=== PATIENT | female | born 1950 | race Caucasian/White ===

== ENCOUNTER 2017-10-30 11:31 | Inpatient (IN) | payer MEDICARE, OTHER ==
[2017-10-30] MEDS ORDERED: DUONEB 0.5-3 MG/3 ml Neb IH ONE (11:59)
[2017-10-30] MEDS: DUONEB 0.5-3 MG/3 ml Neb IH SCH ×2 (12:00→18:55)
[2017-10-30 12:26] LABS: BASOPHIL % 0.3 % (0.0-0.4); Granulocytes % 74.9 % (36.0-66.0); Lymphocytes % 14.5 % (24.0-44.0); Mean Cell Volume 87.3 fl (78-100); Mean Corpuscular Hemoglobin 27.9 pg (26-32); Mean Platelet Volume 9.9 fl (6-9.5); Monocytes % 9.3 % (0.0-12.0); Platelet Count 163 K/mm3 (150-450); Red Blood Count 3.87 M/mm3 (4.1-5.4); Red Cell Distribution Width 14.9 % (11.5-14.0); White Blood Count 12.5 K/mm3 (4.0-10.5)
--- NOTE | 2017-10-30 12:44 | XRAY ---
Indication: Dyspnea. COPD exacerbation. History of breast cancer. Comparison: April 25, 2015. PA/lateral chest demonstrates new diffuse bilateral patchy airspace disease, right lung greater than left. No consolidation or large effusion. Stable left base calcified granuloma. Heart is not enlarged. Bony thorax intact again with mild osteopenia and degenerative changes. Impression: New diffuse bilateral airspace disease.
[2017-10-30 12:46] LABS: ALBUMIN 3.1 g/dL (3.4-5.0); ANION GAP 14.7 MEQ/L (5-15); BILIRUBIN,TOTAL 0.7 mg/dL (0.2-1.0); Carbon Dioxide 25.2 mEq/L (21-32); Potassium 3.7 mEq/L (3.5-5.1)
[2017-10-30] MEDS: ROCEPHIN 1 Gm-D5w 50 ml Bag** 1 G/50 ML IVPB IV SCH (13:42)
[2017-10-30] MEDS: Sodium Chloride 0.9% 1000 ML 1,000 ML IV SCH (14:16)
[2017-10-30] MEDS ORDERED: Klonopin 0.5 MG PO PRN (14:26)
[2017-10-30] MEDS ORDERED: NON-FORMULARY ITEM (Ranitidine Hcl [Zantac] 150 MG) PO PRN (14:26)
[2017-10-30] MEDS ORDERED: ZOFRAN ODT 4 MG PO PRN (14:26)
[2017-10-30] MEDS ORDERED: PHENERGAN 25 MG PO PRN (14:26)
[2017-10-30] MEDS ORDERED: Lomotil PO PRN (14:30)
[2017-10-30] MEDS ORDERED: Pepcid 20 MG PO PRN (14:45)
[2017-10-30] MEDS ORDERED: Neurontin 400 MG PO SCH (15:00)
[2017-10-30] MEDS: NEURONTIN 300 MG PO SCH ×2 (15:18→21:43)
[2017-10-30] MEDS: Zithromax 500 MG/ 250 ML NaCl Premix 500 MG/250 ML IVPB IV SCH (15:24)
[2017-10-30] MEDS ORDERED: solu-MEDROL 125 MG IV ONE (15:30)
[2017-10-30] MEDS: NovoLOG Insulin SQ PRN ×2 (16:43→21:44)
[2017-10-30] MEDS ORDERED: INSULIN ASPART 15 UNIT SQ SCH (17:00)
[2017-10-30] MEDS: NovoLOG Insulin SQ SCH (17:28)
[2017-10-30] MEDS: ULTRAM 50 MG PO PRN (18:25)
[2017-10-30] MEDS ORDERED: Lasix 40 MG/4 ML IV ONE (21:17)
[2017-10-30] MEDS: Lopressor 25MG Tab PO SCH (21:41)
[2017-10-30] MEDS: Sinemet CR 50/200 MG PO SCH (21:42)
[2017-10-30] MEDS: ZOCOR 20MG PO SCH (21:42)
[2017-10-30] MEDS: Singulair 10 MG PO SCH (21:42)
[2017-10-30] MEDS: CLARITIN 10 MG PO SCH (21:42)
[2017-10-30] MEDS: KEPPRA 500 MG PO SCH (21:42)
[2017-10-30] MEDS: solu-MEDROL 125 MG IV SCH (21:43)
[2017-10-30] MEDS: Xalatan OP SCH (21:43)
[2017-10-30] MEDS: Lantus Insulin SQ SCH (21:44)
[2017-10-30] MEDS ORDERED: Keppra 250 MG PO SCH (22:00)
[2017-10-31] MEDS: QUESTRAN Light 4 GM Packet PO SCH ×3 (04:04→21:18)
[2017-10-31] MEDS: DUONEB 0.5-3 MG/3 ml Neb IH SCH ×3 (06:53→18:41)
[2017-10-31] MEDS ORDERED: Spiriva 18 Mcg/Cap Inhaler IH ONE (06:59)
[2017-10-31] MEDS: Spiriva 18 Mcg/Cap Inhaler IH SCH (07:01)
[2017-10-31] MEDS: NovoLOG Insulin SQ SCH ×3 (08:17→18:06)
[2017-10-31] MEDS: NovoLOG Insulin SQ PRN ×4 (08:18→21:33)
--- NOTE | 2017-10-31 08:35 | PCM.NOTE ---
Date and Time: 10/31/17829 Subjective Assessment: Pt admitted from the office yesterday with wheezing, SOB (COPD exacerbation). Put on IV fluids, antibiotics, and steroids. Overnight her O2 sat decreased and she was found to sound "wet" by RN - 40mg lasix given IV with improvement. This morning she states she's doing better. Ate 100% of breakfast. Less SOB at rest. Objective Exam General Appearance: no apparent distress Neurologic Exam: alert, oriented x 3, cooperative Skin Exam: normal color, warm, dry Respiratory Exam: diminished breath sounds, wheezing (decreased wheezing still present all lung woo), No crackles/rales, No rhonchi Cardiovascular Exam: regular rate/rhythm, normal heart sounds, No murmur Extremity Exam: normal inspection, No pedal edema, No swelling Back Exam: normal inspection OBJECTIVE DATA Vital Signs: Vital Signs - 24 hr Temp Pulse Resp BP Pulse Ox 10/31/17 07:39 97.7 F 93 H 20 130/60 92 L 10/31/17 07:04 91 H 20 97 10/31/17 04:00 22 10/31/17 03:52 97.8 F 108 H 22 135/65 93 L 10/31/17 00:00 97.9 F 100 H 19 120/56 95 10/30/17 20:00 98.2 F 119 H 23 123/64 91 L 10/30/17 19:00 124 H 26 H 90 L 10/30/17 16:00 98.5 F 100 H 18 122/55 90 L 10/30/17 12:29 93 L 10/30/17 12:21 100 H 22 88 L 10/30/17 11:56 98.4 F 107 H 22 132/60 93 L Oxygen-Last 24 hours O2 Percentage 4 Liters = 36% O2 Percentage 4 Liters = 36% Oxygen Flowrate (L/min)-RT 15 Oxygen Flowrate (L/min)-RT 15 Oxygen Flowrate (L/min)-RT 15 Oxygen Flowrate (L/min)-RT 4 Pain Assessment - Last Documented Pain Scale Used 0-10 Pain Scale Intake and Output: Intake & Output 10/28/17 10/29/17 10/30/17 10/31/17 11:59 11:59 11:59 11:59 Intake Total 1080 Output Total 150 Balance 930 Weight 101.605 kg Lab Results: Accuchecks Date 10/30/17 Date 10/30/17 Time 21:30 Time 16:31 Accucheck Value: 417 Accucheck Value: 340 Lab Results-Last 24 Hours 10/30/17 10/30/17 10/30/17 Range/Units 12:05 12:05 12:05 WBC 12.5 H (4.0-10.5) K/mm3 RBC 3.87 L (4.1-5.4) M/mm3 Hgb 10.8 L (12.0-16.0) gm/dl Hct 33.8 L (35-47) % MCV 87.3 (78-100) fl MCH 27.9 (26-32) pg MCHC 32.0 (32-36) g/dl RDW 14.9 H (11.5-14.0) % Plt Count 163 (150-450) K/mm3 MPV 9.9 H (6-9.5) fl Gran % 74.9 H (36.0-66.0) % Lymphocytes % 14.5 L (24.0-44.0) % Monocytes % 9.3 (0.0-12.0) % Eosinophils % 1.0 (0.00-5.0) % Basophils % 0.3 (0.0-0.4) % Basophils # 0.04 (0-0.4) Sodium 140 (136-145) mEq/L Potassium 3.7 (3.5-5.1) mEq/L Chloride 104 (98-107) mEq/L Carbon Dioxide 25.2 (21-32) mEq/L Anion Gap 14.7 (5-15) MEQ/L BUN 22 H (9-20) mg/dL Creatinine 1.28 (0.55-1.30) mg/dl Estimated GFR 44 ML/MIN Glucose 156 H (70-110) MG/DL Hemoglobin A1c 8.8 H (4.5-6.2) Calcium 8.8 (8.5-10.1) mg/dL Total Bilirubin 0.70 (0.2-1.0) mg/dL AST 54 H (15-37) U/L ALT 9 L (12-78) U/L Alkaline Phosphatase 89 (46-116) U/L Serum Total Protein 7.0 (6.4-8.2) gm/dL Albumin 3.1 L (3.4-5.0) g/dL Radiology Exams: Radiology Procedures Category Date Time Status CHEST 2 VIEWS (PA AND LAT) Stat Exams 10/30/17 Completed Multi-Disciplinary Progress Notes: Multi-Disciplinary Progress Notes 10/30/17 19:09 Respiratory Note by Dani Ignacio PT O2 sats were at 80%, PT placed on 6LNC WITH NO INCREASE IN SATURATION, pt PLACED ON 15L OXYMASK and O2 sats steady at 91%. Initialized on 10/30/17 19:09 - END OF NOTE Assessment/Plan (1) Pneumonia Current Visit: Yes Status: Acute Qualifiers: Pneumonia type: due to unspecified organism Laterality: bilateral Lung location: lower lobe of lung Qualified Code(s): J18.9 - Pneumonia, unspecified organism Assessment & Plan: On IV rocephin 1g daily (day #2) and IV zithromax (500mg once daily x 3d, day #2 ); she is allergic to cipro. Also on IV solumedrol. Improved somewhat today. Still on O2. Code(s): J18.9 - PNEUMONIA, UNSPECIFIED ORGANISM (2) CHF (congestive heart failure) Current Visit: Yes Status: Acute Qualifiers: Congestive heart failure type: diastolic Congestive heart failure chronicity: acute on chronic Qualified Code(s): I50.33 - Acute on chronic diastolic (congestive) heart failure Assessment & Plan: exacerbated last night with IV fluids - fluids decreased and one time IV lasix given. Clinically no sign of heart failure today. Last echo Oct 2016 - will repeat. Code(s): I50.9 - HEART FAILURE, UNSPECIFIED (3) EMILIE (obstructive sleep apnea) Current Visit: Yes Status: Chronic Assessment & Plan: I encouraged her to ask her to bring her mask and machine in; she states she doesn't like the new machine and can't get the mask to fit. Code(s): G47.33 - OBSTRUCTIVE SLEEP APNEA (ADULT) (PEDIATRIC) (4) Diabetes mellitus Current Visit: Yes Status: Chronic Qualifiers: Diabetes mellitus type: type 2 Diabetes mellitus complication status: with ophthalmic complications Diabetes mellitus complication detail: with diabetic retinopathy Diabetic retinopathy severity: with unspecified retinopathy severity Diabetes mellitus macular edema: macular edema presence unspecified Diabetes mellitus termite helper insulin use: with chcf use Laterality: unspecified laterality Qualified Code(s): E11.319 - Type 2 diabetes mellitus with unspecified diabetic retinopathy without macular edema; Z79.4 - exterminator termite ( current) use of insulin; Z79.4 - detention (current) use of insulin; Z79.4 - detention (current) use of insulin; Z79.4 - exterminator termite (current) use of insulin Assessment & Plan: Very difficult to control her BS. A1c 8.8. Code(s): E11.9 - TYPE 2 DIABETES MELLITUS WITHOUT COMPLICATIONS (5) Fall at home Current Visit: No Status: Acute Qualifiers: Encounter type: subsequent encounter Qualified Code(s): W19.XXXD - Unspecified fall, subsequent encounter; Y92.099 - Unspecified place in other non -institutional residence as the place of occurrence of the external cause; Y92.099 - Unspecified place in other non-institutional residence as the place of occurrence of the external cause Assessment & Plan: She fell once at home 2d ago per her (pt did not tell me this). Was getting out of bed at night. She uses a walker regularly. Code(s): W19.XXXA - UNSPECIFIED FALL, INITIAL ENCOUNTER; Y92.099 - UNSP PLACE IN OTH NON-INSTITUTIONAL RESIDENCE PLACE (6) Morbid obesity Current Visit: No Status: Chronic Code(s): E66.01 - MORBID (SEVERE) OBESITY DUE TO EXCESS CALORIES
[2017-10-31] MEDS ORDERED: NON-FORMULARY ITEM (Insulin Aspart [Novolog Flexpen] 10 UNIT) SQ SCH (09:00)
[2017-10-31 09:08] LABS: Mean Cell Volume 88.8 fl (78-100); Mean Corpuscular Hemoglobin 27.9 pg (26-32); Mean Platelet Volume 10.2 fl (6-9.5); Platelet Count 138 K/mm3 (150-450); Red Blood Count 3.58 M/mm3 (4.1-5.4); Red Cell Distribution Width 14.9 % (11.5-14.0); White Blood Count 9.6 K/mm3 (4.0-10.5)
[2017-10-31] MEDS: ULTRAM 50 MG PO PRN (09:22)
[2017-10-31] MEDS: ROCEPHIN 1 Gm-D5w 50 ml Bag** 1 G/50 ML IVPB IV SCH (09:22)
[2017-10-31] MEDS: Cozaar 50 MG PO SCH (09:23)
[2017-10-31] MEDS: Flomax 0.4 MG PO SCH (09:24)
[2017-10-31] MEDS: Lopressor 25MG Tab PO SCH ×2 (09:24→21:21)
[2017-10-31] MEDS: PLAVIX 75 MG Tablet PO SCH (09:25)
[2017-10-31] MEDS: Apresoline 25 MG TABLET PO SCH (09:25)
[2017-10-31] MEDS: NEURONTIN 300 MG PO SCH ×3 (09:26→21:19)
[2017-10-31] MEDS: Cymbalta 30 MG Capsule PO SCH (09:26)
[2017-10-31] MEDS: KEPPRA 500 MG PO SCH ×2 (09:26→21:19)
[2017-10-31] MEDS: Sinemet CR 50/200 MG PO SCH ×2 (09:27→21:20)
[2017-10-31] MEDS: solu-MEDROL 125 MG IV SCH ×3 (09:28→21:27)
[2017-10-31] MEDS: Lantus Insulin SQ SCH ×2 (09:38→21:33)
[2017-10-31] MEDS ORDERED: SYNTHROID 100 MCG PO SCH (10:00)
[2017-10-31] MEDS ORDERED: NON-FORMULARY ITEM (Pravastatin Sodium [Pravastatin Sodium] 20 MG) PO SCH (10:00)
[2017-10-31] MEDS ORDERED: NON-FORMULARY ITEM (Losartan Potassium [Losartan Potassium] 100 MG) PO SCH (10:00)
[2017-10-31] MEDS ORDERED: Lasix 40 MG PO SCH (10:00)
[2017-10-31] MEDS: PROVENTIL 2.5 MG/3 ML NEB IH PRN (10:29)
[2017-10-31 10:50] LABS: A-aADO2 190; ARTERIAL BLD GAS O2 SATURATION 91.5 % (95-100); ARTERIAL BLOOD GAS BASE EXCESS -3.4 (-2.0-2.0); ARTERIAL BLOOD GAS FIO2 40 %; ARTERIAL BLOOD GAS PO2 50 mmHg (75-100); ARTERIAL BLOOD GAS pH 7.38 (7.35-7.45)
[2017-10-31 10:51] LABS: ALLEN TEST OK? YES
[2017-10-31] MEDS ORDERED: Lasix 40 MG/4 ML IV SCH (11:30)
[2017-10-31 11:48] LABS: A-aADO2 358; ALLEN TEST OK? YES; ARTERIAL BLD GAS O2 SATURATION 99.1 % (95-100); ARTERIAL BLOOD GAS FIO2 80 %; ARTERIAL BLOOD GAS PO2 162 mmHg (75-100); ARTERIAL BLOOD GAS pH 7.37 (7.35-7.45); BIPAP(E) 6; BIPAP(I) 12
--- NOTE | 2017-10-31 11:57 | XRAY ---
Indication: Decrease oxygen saturation. Short of breath. Comparison: October 30, 2017. Portable chest demonstrates moderately worsening diffuse bilateral airspace disease with now tiny bibasilar effusions. Heart is not enlarged. Remaining chest unremarkable.
[2017-10-31] MEDS: SYNTHROID 125 MCG PO SCH (16:35)
[2017-10-31] MEDS: Zithromax 500 MG/ 250 ML NaCl Premix 500 MG/250 ML IVPB IV SCH (16:36)
[2017-10-31] MEDS: Singulair 10 MG PO SCH (21:19)
[2017-10-31] MEDS: ZOCOR 20MG PO SCH (21:19)
[2017-10-31] MEDS: CLARITIN 10 MG PO SCH (21:20)
[2017-10-31] MEDS: Xalatan OP SCH (21:31)
[2017-10-31] MEDS: Sodium Chloride 0.9% 1000 ML 1,000 ML IV SCH (23:12)
[2017-11-01] MEDS: DUONEB 0.5-3 MG/3 ml Neb IH SCH ×4 (03:22→19:15)
[2017-11-01 06:59] LABS: ALBUMIN 2.8 g/dL (3.4-5.0); ANION GAP 16.3 MEQ/L (5-15); BILIRUBIN,TOTAL 0.2 mg/dL (0.2-1.0); Potassium 4.5 mEq/L (3.5-5.1); Total Protein 6.1 gm/dL (6.4-8.2)
[2017-11-01] MEDS: Spiriva 18 Mcg/Cap Inhaler IH SCH (07:17)
[2017-11-01] MEDS: PLAVIX 75 MG Tablet PO SCH (07:59)
[2017-11-01] MEDS: QUESTRAN Light 4 GM Packet PO SCH ×2 (07:59→22:03)
[2017-11-01] MEDS: Cymbalta 30 MG Capsule PO SCH (07:59)
[2017-11-01] MEDS: Apresoline 25 MG TABLET PO SCH (08:00)
[2017-11-01] MEDS: Cozaar 50 MG PO SCH (08:00)
[2017-11-01] MEDS: Flomax 0.4 MG PO SCH (08:00)
[2017-11-01] MEDS: ULTRAM 50 MG PO PRN (08:01)
[2017-11-01] MEDS: NEURONTIN 300 MG PO SCH ×3 (08:01→22:03)
[2017-11-01] MEDS: Sinemet CR 50/200 MG PO SCH ×2 (08:02→22:04)
[2017-11-01] MEDS: Lopressor 25MG Tab PO SCH ×2 (08:02→22:04)
[2017-11-01] MEDS: Lantus Insulin SQ SCH ×2 (08:03→22:05)
[2017-11-01] MEDS: SYNTHROID 125 MCG PO SCH (08:03)
[2017-11-01] MEDS: NovoLOG Insulin SQ SCH ×3 (08:03→17:05)
[2017-11-01] MEDS: KEPPRA 500 MG PO SCH ×2 (08:08→22:05)
--- NOTE | 2017-11-01 08:56 | PCM.NOTE ---
Date and Time: 11/01/17 0853 Subjective Assessment: patient dyspneic still, cough is not productive. not feeling well this morning, nursing stopped IV fluids overnight due to concern for fluid overload, currently on NaCl at 75mL/hr and lasix 40mg IV daily Objective Exam General Appearance: no apparent distress Neurologic Exam: alert Respiratory Exam: accessory muscle use, crackles/rales Cardiovascular Exam: regular rate/rhythm, normal heart sounds Gastrointestinal/Abdomen Exam: soft, No tenderness, No mass Extremity Exam: normal inspection, normal range of motion, pedal edema OBJECTIVE DATA Vital Signs: Vital Signs - 24 hr Temp Pulse Resp BP Pulse Ox 11/01/17 08:00 22 11/01/17 07:23 97.8 F 90 22 130/66 95 11/01/17 07:00 95 H 20 98 11/01/17 04:00 98.3 F 85 17 129/65 97 11/01/17 01:45 86 26 H 97 11/01/17 00:00 98.5 F 89 22 123/56 97 10/31/17 20:00 98.0 F 107 H 15 120/57 98 10/31/17 18:44 100 H 28 H 98 10/31/17 16:00 28 H 10/31/17 15:27 98.8 F 103 H 28 H 127/58 98 10/31/17 14:13 101 H 22 97 10/31/17 12:00 20 10/31/17 11:34 98.4 F 114 H 20 140/65 95 10/31/17 11:06 113 H 21 96 10/31/17 10:31 120 H 24 78 L Oxygen-Last 24 hours O2 Percentage 60% O2 Percentage 60% O2 Percentage 60% Pain Assessment - Last Documented Pain Intensity 10 Pain Scale Used 0-10 Pain Scale Intake and Output: Intake & Output 10/29/17 10/30/17 10/31/17 11/01/17 11:59 11:59 11:59 11:59 Intake Total 1560 2639 Output Total 950 1100 Balance 610 1539 Weight 101.605 kg Lab Results: Accuchecks Date 11/01/17 Date 10/31/17 Date 10/31/17 Date 10/31/17 Time 07:30 Time 16:30 Time 16:30 Time 11:30 Accucheck Value: 380 Accucheck Value: 419 Accucheck Value: 365 Accucheck Value: 401 Lab Results-Last 24 Hours 10/31/17 10/31/17 10/31/17 Range/Units 08:50 10:40 11:40 WBC 9.6 (4.0-10.5) K/mm3 RBC 3.58 L (4.1-5.4) M/mm3 Hgb 10.0 L (12.0-16.0) gm/dl Hct 31.8 L (35-47) % MCV 88.8 (78-100) fl MCH 27.9 (26-32) pg MCHC 31.4 L (32-36) g/dl RDW 14.9 H (11.5-14.0) % Plt Count 138 L (150-450) K/mm3 MPV 10.2 H (6-9.5) fl D-Dimer (0-500) ng/mL Puncture Site RIGHT RADIAL RIGHT RADIAL pCO2 36 40 (35-45) mmHg pO2 50 L* 162 H* (75-100) mmHg Base Excess -3.4 L -2.0 (-2.0-2.0) O2 Saturation 88.9 L 96.6 (94-100) g/dF ABG pH 7.38 7.37 (7.35-7.45) ABG HCO3 21.3 L 23.1 (22-28) ABG O2 Sat (Measured) 91.5 L 99.1 (95-100) % Timur Test YES YES A-a Gradient 190 358 a/A Ratio 0.21 0.31 Hemoglobin 10.9 10.2 Carboxyhemoglobin 1.7 1.6 (0.0-6.9) % THgb Methemoglobin 1.0 L 0.9 L (1.4-1.5) % Potassium 3.6 3.4 L (3.5-5.1) Temperature 37.0 37.0 C POC O2 Flow Rate 40 80 % Vent Mode BiPAP Inspiratory BiPAP 12 Expiratory BiPAP 6 Sodium (136-145) mEq/L Chloride (98-107) mEq/L Carbon Dioxide (21-32) mEq/L Anion Gap (5-15) MEQ/L BUN (9-20) mg/dL Creatinine (0.55-1.30) mg/dl Estimated GFR ML/MIN Glucose (70-110) MG/DL Calcium (8.5-10.1) mg/dL Total Bilirubin (0.2-1.0) mg/dL AST (15-37) U/L ALT (12-78) U/L Alkaline Phosphatase (46-116) U/L NT-Pro-B Natriuret Pep (0-125) pg/ml Serum Total Protein (6.4-8.2) gm/dL Albumin (3.4-5.0) g/dL 10/31/17 11/01/17 Range/Units 11:44 05:00 WBC (4.0-10.5) K/mm3 RBC (4.1-5.4) M/mm3 Hgb (12.0-16.0) gm/dl Hct (35-47) % MCV (78-100) fl MCH (26-32) pg MCHC (32-36) g/dl RDW (11.5-14.0) % Plt Count (150-450) K/mm3 MPV (6-9.5) fl D-Dimer 676.41 H* (0-500) ng/mL Puncture Site pCO2 (35-45) mmHg pO2 (75-100) mmHg Base Excess (-2.0-2.0) O2 Saturation (94-100) g/dF ABG pH (7.35-7.45) ABG HCO3 (22-28) ABG O2 Sat (Measured) (95-100) % Timur Test A-a Gradient a/A Ratio Hemoglobin Carboxyhemoglobin (0.0-6.9) % THgb Methemoglobin (1.4-1.5) % Potassium 4.5 (3.5-5.1) Temperature C POC O2 Flow Rate % Vent Mode Inspiratory BiPAP Expiratory BiPAP Sodium 139 (136-145) mEq/L Chloride 104 (98-107) mEq/L Carbon Dioxide 23.0 (21-32) mEq/L Anion Gap 16.3 H (5-15) MEQ/L BUN 44 H (9-20) mg/dL Creatinine 1.81 H (0.55-1.30) mg/dl Estimated GFR 30 ML/MIN Glucose 373 H (70-110) MG/DL Calcium 7.5 L (8.5-10.1) mg/dL Total Bilirubin 0.20 (0.2-1.0) mg/dL AST 37 (15-37) U/L ALT 6 L (12-78) U/L Alkaline Phosphatase 70 (46-116) U/L NT-Pro-B Natriuret Pep 4865 H (0-125) pg/ml Serum Total Protein 6.1 L (6.4-8.2) gm/dL Albumin 2.8 L (3.4-5.0) g/dL Radiology Exams: Radiology Procedures Category Date Time Status CHEST 1 VIEW (PORTABLE) Stat Exams 10/31/17 11:24 Completed ECHO W/2D AND DOPPLER [US] Routine Exams 10/31/17 Taken Multi-Disciplinary Progress Notes: Multi-Disciplinary Progress Notes 11/01/17 07:22 Respiratory Note by Mandy Church TOOK PT OFF BIPAP 0700 FOR NEB TX. PLACED ON N/C 6LPM Initialized on 11/01/17 07:22 - END OF NOTE 10/31/17 11:00 (created 10/31/17 13:22) Case Management Note by Paola Peterson PT ON BIPAP AT PRESENT. WILL DISCUSS DISCHARGE PLANNING AT LATER TIME. Initialized on 10/31/17 13:22 - END OF NOTE 10/31/17 10:34 Nutrition Note by Mony Vazquez Attempted to educate on diet, pt refused at this time. CHULA Grace Initialized on 10/31/17 10:34 - END OF NOTE Assessment/Plan (1) CHF (congestive heart failure) Current Visit: Yes Status: Acute Qualifiers: Congestive heart failure type: diastolic Congestive heart failure chronicity: acute on chronic Qualified Code(s): I50.33 - Acute on chronic diastolic (congestive) heart failure Assessment & Plan: increase lasix to 40mg IV q12 hours, saline lock IV. will repeat labs in am, bun /cr mildly increased so will need to monitor renal function while diuresing. Code(s): I50.9 - HEART FAILURE, UNSPECIFIED (2) Pneumonia Current Visit: Yes Status: Acute Qualifiers: Pneumonia type: due to unspecified organism Laterality: bilateral Lung location: lower lobe of lung Qualified Code(s): J18.9 - Pneumonia, unspecified organism Assessment & Plan: on rocephin/zithromax at this time, continue. also receiving IV solu medrol Code(s): J18.9 - PNEUMONIA, UNSPECIFIED ORGANISM (3) Diabetes mellitus Current Visit: Yes Status: Chronic Qualifiers: Diabetes mellitus type: type 2 Diabetes mellitus complication status: with ophthalmic complications Diabetes mellitus complication detail: with diabetic retinopathy Diabetic retinopathy severity: with unspecified retinopathy severity Diabetes mellitus macular edema: macular edema presence unspecified Diabetes mellitus terminal operator insulin use: with fdc use Laterality: unspecified laterality Qualified Code(s): E11.319 - Type 2 diabetes mellitus with unspecified diabetic retinopathy without macular edema; Z79.4 - terminal makeup operator ( current) use of insulin; Z79.4 - group home (current) use of insulin; Z79.4 - group home (current) use of insulin; Z79.4 - terminal makeup operator (current) use of insulin Code(s): E11.9 - TYPE 2 DIABETES MELLITUS WITHOUT COMPLICATIONS
[2017-11-01] MEDS: ROCEPHIN 1 Gm-D5w 50 ml Bag** 1 G/50 ML IVPB IV SCH (09:53)
[2017-11-01] MEDS: Lasix 40 MG/4 ML IV SCH ×2 (09:56→22:04)
[2017-11-01] MEDS: CORTISPORIN EAR DROPS 10 ML SUSPENSION OT SCH ×3 (09:57→22:03)
[2017-11-01] MEDS: solu-MEDROL 125 MG IV SCH ×3 (09:57→22:02)
[2017-11-01] MEDS: NovoLOG Insulin SQ PRN ×3 (11:35→22:05)
[2017-11-01] MEDS: Mucinex 600MG ER Tabs PO SCH ×2 (14:55→22:04)
[2017-11-01] MEDS: Zithromax 500 MG/ 250 ML NaCl Premix 500 MG/250 ML IVPB IV SCH (15:46)
[2017-11-01] MEDS ORDERED: TYLENOL 325 MG PO PRN (20:13)
[2017-11-01] MEDS ORDERED: Mucinex 600MG ER Tabs PO SCH (22:00)
[2017-11-01] MEDS: Xalatan OP SCH (22:03)
[2017-11-01] MEDS: Singulair 10 MG PO SCH (22:04)
[2017-11-01] MEDS: CLARITIN 10 MG PO SCH (22:04)
[2017-11-01] MEDS: ZOCOR 20MG PO SCH (22:04)
[2017-11-02] MEDS: DUONEB 0.5-3 MG/3 ml Neb IH SCH ×4 (01:41→19:08)
[2017-11-02 05:39] LABS: Granulocytes % 84.6 % (36.0-66.0); Lymphocytes % 10.8 % (24.0-44.0); Mean Cell Volume 90.5 fl (78-100); Mean Platelet Volume 10.5 fl (6-9.5); Monocytes % 4.6 % (0.0-12.0); Platelet Count 172 K/mm3 (150-450); Red Blood Count 3.47 M/mm3 (4.1-5.4); Red Cell Distribution Width 15.4 % (11.5-14.0); White Blood Count 11.2 K/mm3 (4.0-10.5)
[2017-11-02 05:49] LABS: Mean Corpuscular Hemoglobin 27.9 pg (26-32)
[2017-11-02 06:09] LABS: ANION GAP 14.1 MEQ/L (5-15); Carbon Dioxide 24.6 mEq/L (21-32); Potassium 3.9 mEq/L (3.5-5.1)
[2017-11-02 07:20] LABS: Bilirubin NEGATIVE (NEGATIVE); Blood 250 Ery/ul (0-5); COMPLETE URINE MICROSCOPIC? YES; Collection Type CATH; Glucose NEGATIVE (NEGATIVE); Leukocyte Esterase TRACE (NEGATIVE)
[2017-11-02] MEDS: Spiriva 18 Mcg/Cap Inhaler IH SCH (07:25)
--- NOTE | 2017-11-02 08:03 | PCM.NOTE ---
Date and Time: 11/02/17 0801 Subjective Assessment: still feels poorly this am, no new complaints. has cough and dyspnea, hard to sit up Objective Exam General Appearance: mild distress, alert Skin Exam: normal color, warm, dry Respiratory Exam: crackles/rales Cardiovascular Exam: regular rate/rhythm, normal heart sounds Gastrointestinal/Abdomen Exam: soft, No tenderness, No mass Extremity Exam: normal inspection, normal range of motion OBJECTIVE DATA Vital Signs: Vital Signs - 24 hr Temp Pulse Resp BP Pulse Ox 11/02/17 07:33 20 11/02/17 07:17 97.9 F 85 20 129/60 96 11/02/17 07:00 87 20 96 11/02/17 04:00 97.7 F 98 H 17 127/77 96 11/02/17 01:42 81 15 98 11/02/17 00:18 98.2 F 109 H 22 123/60 94 L 11/02/17 00:00 22 11/01/17 20:00 24 11/01/17 19:44 100.4 F 112 H 24 126/66 92 L 11/01/17 19:16 110 H 18 91 L 11/01/17 16:00 99.5 F 116 H 24 118/67 90 L 11/01/17 12:23 89 22 95 11/01/17 11:42 20 11/01/17 10:58 97.8 F 118 H 20 131/91 94 L Oxygen-Last 24 hours O2 Percentage 60% O2 Percentage 60% O2 Percentage 60% Pain Assessment - Last Documented Pain Intensity 2 Pain Scale Used 0-10 Pain Scale Intake and Output: Intake & Output 10/30/17 10/31/17 11/01/17 11/02/17 11:59 11:59 11:59 11:59 Intake Total 1560 2639 1540 Output Total 950 1550 1225 Balance 610 1089 315 Weight 101.605 kg 104.411 kg Lab Results: Accuchecks Date 11/01/17 Date 11/01/17 Date 11/01/17 Time 21:37 Time 16:30 Time 11:30 Accucheck Value: 298 Accucheck Value: 384 Accucheck Value: 371 Lab Results-Last 24 Hours 11/02/17 11/02/17 11/02/17 Range/Units 04:58 04:58 06:21 WBC 11.2 H (4.0-10.5) K/mm3 RBC 3.47 L (4.1-5.4) M/mm3 Hgb 9.7 L (12.0-16.0) gm/dl Hct 31.4 L (35-47) % MCV 90.5 (78-100) fl MCH 27.9 (26-32) pg MCHC 30.9 L (32-36) g/dl RDW 15.4 H (11.5-14.0) % Plt Count 172 (150-450) K/mm3 MPV 10.5 H (6-9.5) fl Gran % 84.6 H (36.0-66.0) % Lymphocytes % 10.8 L (24.0-44.0) % Monocytes % 4.6 (0.0-12.0) % Eosinophils % 0.0 (0.00-5.0) % Basophils % 0.0 (0.0-0.4) % Basophils # 0 (0-0.4) Sodium 142 (136-145) mEq/L Potassium 3.9 (3.5-5.1) mEq/L Chloride 107 (98-107) mEq/L Carbon Dioxide 24.6 (21-32) mEq/L Anion Gap 14.1 (5-15) MEQ/L BUN 55 H (9-20) mg/dL Creatinine 1.75 H (0.55-1.30) mg/dl Estimated GFR 31 ML/MIN Glucose 121 H (70-110) MG/DL Calcium 7.7 L (8.5-10.1) mg/dL NT-Pro-B Natriuret Pep 7254 H (0-125) pg/ml Ur Collection Type Pending Urine Color Pending Urine Appearance Pending Urine pH Pending Ur Specific [place] Pending Urine Protein Pending Urine Ketones Pending Urine Blood Pending Urine Nitrite Pending Urine Bilirubin Pending Urine Urobilinogen Pending Ur Leukocyte Esterase Pending Urine Glucose Pending Specimen Received Pending Radiology Exams: Radiology Procedures Category Date Time Status CHEST 1 VIEW (PORTABLE) Stat Exams 10/31/17 11:24 Completed Assessment/Plan (1) CHF (congestive heart failure) Current Visit: Yes Status: Acute Qualifiers: Congestive heart failure type: diastolic Congestive heart failure chronicity: acute on chronic Qualified Code(s): I50.33 - Acute on chronic diastolic (congestive) heart failure Assessment & Plan: continue IV lasix Code(s): I50.9 - HEART FAILURE, UNSPECIFIED (2) Pneumonia Current Visit: Yes Status: Acute Qualifiers: Pneumonia type: due to unspecified organism Laterality: bilateral Lung location: lower lobe of lung Qualified Code(s): J18.9 - Pneumonia, unspecified organism Assessment & Plan: continue rocephin/zithromax Code(s): J18.9 - PNEUMONIA, UNSPECIFIED ORGANISM (3) Diabetes mellitus Current Visit: Yes Status: Chronic Qualifiers: Diabetes mellitus type: type 2 Diabetes mellitus complication status: with ophthalmic complications Diabetes mellitus complication detail: with diabetic retinopathy Diabetic retinopathy severity: with unspecified retinopathy severity Diabetes mellitus macular edema: macular edema presence unspecified Diabetes mellitus penitentiary insulin use: with penitentiary use Laterality: unspecified laterality Qualified Code(s): E11.319 - Type 2 diabetes mellitus with unspecified diabetic retinopathy without macular edema; Z79.4 - tin worker ( current) use of insulin; Z79.4 - longterm (current) use of insulin; Z79.4 - longterm (current) use of insulin; Z79.4 - longterm (current) use of insulin Code(s): E11.9 - TYPE 2 DIABETES MELLITUS WITHOUT COMPLICATIONS
[2017-11-02] MEDS: Lantus Insulin SQ SCH ×2 (08:17→21:49)
[2017-11-02] MEDS: NovoLOG Insulin SQ SCH ×3 (08:17→17:01)
[2017-11-02 08:19] LABS: Bacteria FEW /HPF (NEGATIVE); Epithelial Cells FEW /HPF (FEW); WBC 0-2 /HPF (0-5)
[2017-11-02] MEDS: Flomax 0.4 MG PO SCH (08:19)
[2017-11-02] MEDS: Lopressor 25MG Tab PO SCH ×2 (08:19→20:53)
[2017-11-02] MEDS: Cozaar 50 MG PO SCH (08:19)
[2017-11-02] MEDS: KEPPRA 500 MG PO SCH ×2 (08:19→21:49)
[2017-11-02] MEDS: SYNTHROID 125 MCG PO SCH (08:20)
[2017-11-02] MEDS: Apresoline 25 MG TABLET PO SCH (08:20)
[2017-11-02] MEDS: Mucinex 600MG ER Tabs PO SCH ×2 (08:21→20:53)
[2017-11-02] MEDS: NEURONTIN 300 MG PO SCH ×3 (08:21→20:52)
[2017-11-02] MEDS: PLAVIX 75 MG Tablet PO SCH (08:21)
[2017-11-02] MEDS: Cymbalta 30 MG Capsule PO SCH (08:21)
[2017-11-02] MEDS: Sinemet CR 50/200 MG PO SCH ×2 (08:23→20:54)
[2017-11-02] MEDS: ROCEPHIN 1 Gm-D5w 50 ml Bag** 1 G/50 ML IVPB IV SCH (08:28)
[2017-11-02] MEDS: Lasix 40 MG/4 ML IV SCH ×2 (08:28→19:53)
[2017-11-02] MEDS: solu-MEDROL 125 MG IV SCH ×3 (08:29→20:55)
[2017-11-02] MEDS: QUESTRAN Light 4 GM Packet PO SCH ×2 (08:35→20:50)
[2017-11-02] MEDS: CORTISPORIN EAR DROPS 10 ML SUSPENSION OT SCH ×3 (08:38→20:58)
[2017-11-02] MEDS: NovoLOG Insulin SQ PRN ×3 (11:14→21:49)
[2017-11-02] MEDS: Singulair 10 MG PO SCH (20:52)
[2017-11-02] MEDS: ZOCOR 20MG PO SCH (20:52)
[2017-11-02] MEDS: CLARITIN 10 MG PO SCH (20:54)
[2017-11-02] MEDS: Xalatan OP SCH (20:59)
[2017-11-03] MEDS: DUONEB 0.5-3 MG/3 ml Neb IH SCH ×3 (01:05→13:57)
[2017-11-03 06:10] LABS: Platelet Count 174 K/mm3 (150-450); Red Cell Distribution Width 15.4 % (11.5-14.0); White Blood Count 13.9 K/mm3 (4.0-10.5)
[2017-11-03 06:31] LABS: Carbon Dioxide 25.4 mEq/L (21-32); Potassium 3.7 mEq/L (3.5-5.1)
[2017-11-03] MEDS: Spiriva 18 Mcg/Cap Inhaler IH SCH (06:40)
[2017-11-03] MEDS ORDERED: Sodium Chloride 0.9% 10 ML FLUSH Syringe IV PRN (08:29)
[2017-11-03 08:45] LABS: A-aADO2 443; ARTERIAL BLD GAS O2 SATURATION 97.4 % (95-100); ARTERIAL BLOOD GAS BASE EXCESS 0.7 (-2.0-2.0); ARTERIAL BLOOD GAS FIO2 80 %; ARTERIAL BLOOD GAS PO2 77 mmHg (75-100); ARTERIAL BLOOD GAS pH 7.41 (7.35-7.45)
[2017-11-03] MEDS ORDERED: Lasix 40 MG/4 ML IV SCH (08:45)
--- NOTE | 2017-11-03 08:45 | PCM.NOTE ---
Date and Time: 11/03/17838 Subjective Assessment: Pt still quite dyspneic, this morning changed from BiPap to Hi flow O2. ABG done this morning with paO2 < 90 (verbal report, written report unavailable). She has tolerated some liquid on the high flow O2. Still not feeling well. Had good urine out with lasix yesterday. - Review of Systems Constitutional: No Fever Respiratory: Cough, Short Of Breath Objective Exam General Appearance: mild distress (dyspnea), alert Neurologic Exam: oriented x 3, cooperative Skin Exam: normal color, warm, dry, No rash Ears, Nose, Throat Exam: moist mucous membranes Respiratory Exam: diminished breath sounds, rhonchi (scattered throughout), wheezing (scattered throughout) Cardiovascular Exam: normal heart sounds, tachycardia (reg rhythm), No murmur Extremity Exam: normal inspection, No pedal edema, No swelling OBJECTIVE DATA Vital Signs: Vital Signs - 24 hr Temp Pulse Resp BP Pulse Ox 11/03/17 07:33 112 H 22 94 L 11/03/17 07:23 22 11/03/17 07:19 98.8 F 101 H 22 136/70 88 L 11/03/17 07:03 104 H 24 88 L 11/03/17 04:00 22 11/03/17 03:01 99.0 F 105 H 22 134/72 91 L 11/03/17 01:05 112 H 21 92 L 11/03/17 00:00 24 11/02/17 23:27 98.8 F 115 H 24 143/68 92 L 11/02/17 20:00 20 11/02/17 19:30 98.0 F 113 H 20 139/72 91 L 11/02/17 19:08 115 H 22 85 L 11/02/17 16:24 97.6 F 118 H 20 130/66 93 L 11/02/17 16:00 20 11/02/17 13:01 22 94 L 11/02/17 13:00 113 H 28 H 74 L 11/02/17 12:17 97.7 F 100 H 24 127/84 90 L 11/02/17 12:00 20 Oxygen-Last 24 hours O2 Percentage 70% O2 Percentage 70% O2 Percentage 60% O2 Percentage 4 Liters = 36% Pain Assessment - Last Documented Pain Intensity 2 Pain Scale Used 0-10 Pain Scale Intake and Output: Intake & Output 10/31/17 11/01/17 11/02/17 11/03/17 11:59 11:59 11:59 11:59 Intake Total 1560 2639 1900 890 Output Total 950 1550 1225 1600 Balance 610 1089 675 -710 Weight 104.411 kg 105.772 kg Lab Results: Accuchecks Date 11/03/17 Date 11/02/17 Date 11/02/17 Date 11/02/17 Time 07:30 Time 22:00 Time 16:30 Time 11:00 Accucheck Value: 128 Accucheck Value: 266 Accucheck Value: 235 Accucheck Value: 158 Lab Results-Last 24 Hours 11/03/17 11/03/17 Range/Units 05:45 05:45 WBC 13.9 H (4.0-10.5) K/mm3 RBC 3.60 L (4.1-5.4) M/mm3 Hgb 10.1 L (12.0-16.0) gm/dl Hct 32.4 L (35-47) % MCV 90.0 (78-100) fl MCH 28.0 (26-32) pg MCHC 31.2 L (32-36) g/dl RDW 15.4 H (11.5-14.0) % Plt Count 174 (150-450) K/mm3 MPV 11.0 H (6-9.5) fl Sodium 146 H (136-145) mEq/L Potassium 3.7 (3.5-5.1) mEq/L Chloride 109 H (98-107) mEq/L Carbon Dioxide 25.4 (21-32) mEq/L Anion Gap 15.0 (5-15) MEQ/L BUN 51 H (9-20) mg/dL Creatinine 1.46 H (0.55-1.30) mg/dl Estimated GFR 38 ML/MIN Glucose 150 H (70-110) MG/DL Calcium 7.4 L (8.5-10.1) mg/dL NT-Pro-B Natriuret Pep 8990 H (0-125) pg/ml Radiology Exams: Radiology Procedures Category Date Time Status CHEST 1 VIEW (PORTABLE) Urgent Exams 11/03/17 Ordered Assessment/Plan (1) Dyspnea Current Visit: Yes Status: Acute Qualifiers: Dyspnea type: shortness of breath Qualified Code(s): R06.02 - Shortness of breath; R06.00 - Dyspnea, unspecified; R06.01 - Orthopnea Assessment & Plan: with hypoxemia. I think most likely due to unresolved CHF. Echo is pending. Lasix has been increased; if no good result with lasix this morning I would order a VQ scan. On admission I opted not to order the scan as ABG revealed her paO2 to be 162 so PE was less likely. CXR is pending. Increased her IV solumedrol frequency. If pulmonology is readily available today will consult. Code(s): R06.00 - DYSPNEA, UNSPECIFIED (2) Pneumonia Current Visit: Yes Status: Acute Qualifiers: Pneumonia type: due to unspecified organism Laterality: bilateral Lung location: lower lobe of lung Qualified Code(s): J18.9 - Pneumonia, unspecified organism Assessment & Plan: On IV rocephin. Finished 3d of zithromax. On IV solumedrol 80mg IV TID - increased that to QID this morning. Repeat CXR; consider changing antibiotics ( pt is allergic to fluroquinolones). Code(s): J18.9 - PNEUMONIA, UNSPECIFIED ORGANISM (3) CHF (congestive heart failure) Current Visit: Yes Status: Acute Qualifiers: Congestive heart failure type: diastolic Congestive heart failure chronicity: acute on chronic Qualified Code(s): I50.33 - Acute on chronic diastolic (congestive) heart failure Assessment & Plan: Echo was repeated on Friday. Increased IV lasix to 80mg IV daily. Code(s): I50.9 - HEART FAILURE, UNSPECIFIED (4) EMILIE (obstructive sleep apnea) Current Visit: Yes Status: Chronic Assessment & Plan: RT to work with pt to find a mask that works for her so she can use it at home. Code(s): G47.33 - OBSTRUCTIVE SLEEP APNEA (ADULT) (PEDIATRIC) (5) Diabetes mellitus Current Visit: Yes Status: Chronic Qualifiers: Diabetes mellitus type: type 2 Diabetes mellitus complication status: with ophthalmic complications Diabetes mellitus complication detail: with diabetic retinopathy Diabetic retinopathy severity: with unspecified retinopathy severity Diabetes mellitus macular edema: macular edema presence unspecified Diabetes mellitus halfway insulin use: with halfway use Laterality: unspecified laterality Qualified Code(s): E11.319 - Type 2 diabetes mellitus with unspecified diabetic retinopathy without macular edema; 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; Z79.4 - petroleum terminal plant operator (current) use of insulin; Z79.4 - petroleum terminal plant operator (current) use of insulin; Z79.4 - petroleum terminal plant operator (current) use of insulin Code(s): E11.9 - TYPE 2 DIABETES MELLITUS WITHOUT COMPLICATIONS (6) Fall at home Current Visit: No Status: Acute Qualifiers: Encounter type: subsequent encounter Qualified Code(s): W19.XXXD - Unspecified fall, subsequent encounter; Y92.099 - Unspecified place in other non -institutional residence as the place of occurrence of the external cause; Y92.099 - Unspecified place in other non-institutional residence as the place of occurrence of the external cause Code(s): W19.XXXA - UNSPECIFIED FALL, INITIAL ENCOUNTER; Y92.099 - UNSP PLACE IN OTH NON-INSTITUTIONAL RESIDENCE PLACE (7) Morbid obesity Current Visit: No Status: Chronic Code(s): E66.01 - MORBID (SEVERE) OBESITY DUE TO EXCESS CALORIES
[2017-11-03 08:47] LABS: ALLEN TEST OK? YES
--- NOTE | 2017-11-03 08:55 | XRAY ---
Indication: Short of breath. Comparison: October 31, 2017. Portable chest demonstrates continued marked worsening diffuse bilateral airspace disease with now multifocal patchy consolidations, greatest in the right upper lobe. No large effusion. Heart is not enlarged.
[2017-11-03] MEDS: solu-MEDROL 125 MG IV SCH ×2 (09:57→14:20)
[2017-11-03] MEDS ORDERED: Quelicin Fliptop 200 MG/10 ML IV SCH (10:00)
[2017-11-03 10:04] LABS: A-aADO2 618; ARTERIAL BLD GAS O2 SATURATION 89.2 % (95-100); ARTERIAL BLOOD GAS BASE EXCESS 0.9 (-2.0-2.0); ARTERIAL BLOOD GAS FIO2 100 %; ARTERIAL BLOOD GAS pH 7.43 (7.35-7.45)
[2017-11-03 10:05] LABS: ALLEN TEST OK? YES; ARTERIAL BLOOD GAS PO2 48 mmHg (75-100)
[2017-11-03] MEDS: SYNTHROID 125 MCG PO SCH (10:16)
[2017-11-03] MEDS: Lopressor 25MG Tab PO SCH (10:17)
[2017-11-03] MEDS: Cozaar 50 MG PO SCH (10:18)
[2017-11-03] MEDS: KEPPRA 500 MG PO SCH (10:19)
[2017-11-03] MEDS: Apresoline 25 MG TABLET PO SCH (10:19)
[2017-11-03] MEDS: QUESTRAN Light 4 GM Packet PO SCH (10:19)
[2017-11-03] MEDS: Flomax 0.4 MG PO SCH (10:20)
[2017-11-03] MEDS: Cymbalta 30 MG Capsule PO SCH (10:20)
[2017-11-03 10:32] LABS: Total Cells Counted 100
[2017-11-03 10:33] LABS: ANISOCYTOSIS 1+; Platelet Estimate NORMAL (NORMAL); Toxic Granulation 1+
[2017-11-03] MEDS ORDERED: SUBLIMAZE 100 MCG/2 ML ONE (10:40)
[2017-11-03] MEDS ORDERED: Versed 50 MG/ 10 Ml MDV*** 50 MG in Sodium Chloride 0.9% 250 ML 240 ML IV PRN (10:45)
[2017-11-03] MEDS: PROVENTIL 2.5 MG/3 ML NEB IH PRN (10:50)
[2017-11-03] MEDS: VERSED 5 MG/5 ML IV PRN ×2 (10:58→12:35)
[2017-11-03] MEDS ORDERED: SUBLIMAZE 1000 Mcg/ 20 Ml*** 1,500 MCG in Sodium Chloride 0.9% 150 ML 120 ML IV SCH (11:00)
[2017-11-03] MEDS ORDERED: SUBLIMAZE 100 MCG/2 ML IV ONE (11:00)
[2017-11-03] MEDS ORDERED: VERSED 5 MG/5 ML IV ONE (11:00)
--- NOTE | 2017-11-03 11:06 | XRAY ---
Indication: Tube placement. Comparison: Taken earlier in the day. Portable chest demonstrates new NG tube tip in the stomach and new endotracheal tube tip 2.5 cm above the dhaval. Remaining chest unchanged.
[2017-11-03] MEDS ORDERED: Nimbex 20MG/10 Ml Vial (HIGH RISK MED) IV ONE (11:15)
[2017-11-03] MEDS ORDERED: Nimbex 200MG/20 Ml MDV (HIGH RISK MED)** 200 MG in Dextrose 5%/Water IV Soln. 250 ML 18... IV SCH (11:15)
[2017-11-03] MEDS ORDERED: BUMEX 1 MG IV STA (11:17)
[2017-11-03 11:49] LABS: A-aADO2 573; ARTERIAL BLD GAS O2 SATURATION 93.5 % (95-100); ARTERIAL BLD GAS TIDAL VOLUME 500 cc; ARTERIAL BLOOD GAS BASE EXCESS 0.8 (-2.0-2.0); ARTERIAL BLOOD GAS FIO2 100 %; ARTERIAL BLOOD GAS PO2 66 mmHg (75-100); ARTERIAL BLOOD GAS pH 7.29 (7.35-7.45)
[2017-11-03] MEDS: CORTISPORIN EAR DROPS 10 ML SUSPENSION OT SCH (12:10)
[2017-11-03] MEDS: NovoLOG Insulin SQ SCH ×2 (12:10→12:15)
[2017-11-03] MEDS: Lantus Insulin SQ SCH (12:11)
[2017-11-03] MEDS: Mucinex 600MG ER Tabs PO SCH (12:13)
[2017-11-03] MEDS: NEURONTIN 300 MG PO SCH (12:13)
[2017-11-03] MEDS: PLAVIX 75 MG Tablet PO SCH (12:14)
[2017-11-03] MEDS: Sinemet CR 50/200 MG PO SCH (12:15)
--- NOTE | 2017-11-03 13:35 | ECHO ---
Transthoracic echocardiographic examination and color Doppler was done on 10/31/2017. INDICATION: Hypertension, diabetes, shortness of breath. IMPRESSION: 1) REGIONAL WALL MOTION ABNORMALITY WITH MILD HYPOKINESIA OF THE DISTAL SEPTUM. ESTIMATED GLOBAL LEFT VENTRICULAR EJECTION FRACTION BETWEEN 50 AND 60%. 2) TRACE MITRAL REGURGITATION. 3) TRACE TRICUSPID REGURGITATION. RIGHT VENTRICULAR SYSTOLIC PRESSURE OF 40 MM OF MERCURY. 4) LEFT ATRIAL ENLARGEMENT. 5) LEFT VENTRICULAR HYPERTROPHY. 6) LEFT VENTRICULAR DIASTOLIC DYSFUNCTION. The left ventricle is visualized and demonstrated mild hypokinesia of the distal septum. Estimated global left ventricular ejection fraction between 50 and 60%. There is concentric mild left ventricular hypertrophy. The mitral valve is seen and this opens adequately. There is trace mitral regurgitation. Left atrium is mildly enlarged. Tissue Doppler study of the lateral mitral annulus suggest left ventricular diastolic dysfunction. The aortic valve opens adequately. There is no significant gradient across the left ventricular outflow tract. The right side chambers are normal. There is trace tricuspid regurgitation. The right ventricular systolic pressure of 40 mm of Mercury.
[2017-11-03] MEDS ORDERED: Sodium Chloride 0.9% 10 ML FLUSH Syringe IV SCH (14:00)
[2017-11-03 14:04] VITALS: PULSE 80; O2SAT 99
--- NOTE | 2017-11-03 14:10 | XRAY ---
Indication: PICC line placement. Comparison: Taken earlier in the day. Portable chest demonstrates new right arm PICC line with the tip projecting over the SVC and stable endotracheal tube/NG tube. Very minimal clearing of the previous bilateral airspace opacities. No new cardiopulmonary abnormalities.
[2017-11-03] MEDS: ROCEPHIN 1 Gm-D5w 50 ml Bag** 1 G/50 ML IVPB IV SCH (14:16)
[2017-11-03 14:35] VITALS: BP 119/56
== END 2017-11-03 16:00 | disposition short-term general hospital (02) | DRG 190 ==
LOC: MED SURG 11:37 → OBSVTOIN 10-31 09:25 → ICU 11-03 10:30
PROVIDERS: ADMIT Family Medicine; ATTEND Family Medicine
DX: J44.1 Chronic obstructive pulmonary disease with (acute) exacerbation (principal); J18.9 Pneumonia, unspecified organism; I50.33 Acute on chronic diastolic (congestive) heart failure; G47.33 Obstructive sleep apnea (adult) (pediatric); E11.319 Type 2 diabetes mellitus with unspecified diabetic retinopathy without macular edema; Z79.4 Long term (current) use of insulin; W19.XXXD Unspecified fall, subsequent encounter; Y92.099 Unspecified place in other non-institutional residence as the place of occurrence of the external cause; E66.01 Morbid (severe) obesity due to excess calories; E11.42 Type 2 diabetes mellitus with diabetic polyneuropathy; J45.909 Unspecified asthma, uncomplicated; E78.5 Hyperlipidemia, unspecified; I10 Essential (primary) hypertension; Z86.73 Personal history of transient ischemic attack (TIA), and cerebral infarction without residual deficits; Z85.3 Personal history of malignant neoplasm of breast; Z79.899 Other long term (current) drug therapy
CPT/HCPCS: 31500; 36415; 36569; 36600; 71010; 71020; 80048; 80053; 81000; 82375; 82803; 82962; 83036; 83880; 85025; 85027; 85379; 87086; 93306; 94002; 94003; 94640; 94760; 94761; 94770; G0378; J0330; J0456; J0696; J1940; J2250; J2930; J3010; A9270-GY